=== PATIENT | male | born 1960 | race Caucasian/White ===

== ENCOUNTER 2018-04-05 07:30 | Inpatient (IN) ==
[2018-03-31 17:36] LABS: Appearance,Urine CLEAR; Bacteria,Urine 0 /hpf (0); Bilirubin,Urine NEG (NEG); Color,Urine YELLOW; Glucose,Urine (UA) NEGATIVE (NEG); Leukocyte Esterase,Urine NEG /uL (NEG); Mucus,Urine MANY /hpf (0); Protein,Urine NEG (NEG); Specific Gravity,Urine 1.036 (1.000-1.035); Urine Blood 0.03 mg/dL (<0.03); Urine RBC 0 /hpf (0-1); Urine Squamous Epithelial Cell 0 /hpf (0-4); Urine WBC < 1 /hpf (0-4); Urobilinogen,Urine NEG (NEG)
[2018-03-31 18:30] LABS: Basophils # (Auto) 0 K/mcL (0.0-0.3); Eosinophils # (Auto) 0.3 K/mcL (0.0-0.7); Eosinophils % (Auto) 5.1 % (0.0-7.0); Granulocytes % (Auto) 55.3 % (38.0-78.0); Lymphocytes # (Auto) 1.4 K/mcL (1.5-4.8); Lymphocytes % (Auto) 28.2 % (15.5-49.0); Monocytes # (Auto) 0.5 K/mcL (0.1-0.9); Monocytes % (Auto) 10.4 % (1.0-12.0); Platelet Count 181 K/mcL (140-440); RBC 4.79 M/mcL (4.50-5.90); Red Cell Distribution Width 14.1 % (11.5-14.5)
[2018-03-31 19:01] LABS: Blood Urea Nitrogen 21 mg/dl (6-20)
[~2018-04-05 07:30] MED LIST: ACETAMINOPHEN 500 MG TABLET PO SCH; CELECOXIB 200 MG CAPSULE PO SCH; PREGABALIN 75 MG CAPSULE PO SCH; ceFAZolin 1 GM VIAL IV SCH; oxyCODONE 10 MG TAB.ER.12H PO SCH
[2018-04-05] MEDS ORDERED: GENTAMICIN SULFATE 800 MG/20 ML VIAL IR ONE (11:54)
[2018-04-05] MEDS ORDERED: GLYCOPYRROLATE 0.2 MG/ML VIAL IV ONE (12:40)
[2018-04-05] MEDS ORDERED: ONDANSETRON 4 MG/2 ML VIAL IV ONE (12:40)
[2018-04-05] MEDS ORDERED: PROPOFOL 200 MG/20 ML VIAL IV ONE (12:40)
[2018-04-05] MEDS ORDERED: KETAMINE 100 MG/ML ML IV ONE (12:40)
[2018-04-05] MEDS ORDERED: PHENYLEPHRINE 10 MG/ML VIAL IV ONE (12:40)
[2018-04-05] MEDS ORDERED: TRANEXAMIC ACID 1,000 MG/10 ML VIAL IV ONE ×2 (12:40→14:21)
[2018-04-05] MEDS ORDERED: ePHEDrine 50 MG/ML AMPUL IV ONE (12:40)
[2018-04-05] MEDS ORDERED: MIDAZOLAM 2 MG/2 ML VIAL IV ONE (12:40)
[2018-04-05] MEDS ORDERED: LIDOCAINE HCL/PF 100 MG/5 ML SYRINGE IV ONE (12:40)
[2018-04-05] MEDS ORDERED: IPRATROPIUM/ALBUTEROL 3 ML AMPUL.NEB NEB PRN (14:17)
[2018-04-05] MEDS ORDERED: METHOCARBAMOL 1,000 MG/10 ML VIAL IV PRN (14:17)
[2018-04-05] MEDS ORDERED: fentaNYL 100 MCG/2 ML VIAL IV PRN (14:17)
[2018-04-05] MEDS ORDERED: MEPERIDINE 25 MG/ML SYRINGE IV PRN (14:17)
[2018-04-05] MEDS ORDERED: ONDANSETRON 4 MG/2 ML VIAL IV PRN ×2 (14:17→14:21)
[2018-04-05] MEDS ORDERED: ACETAMINOPHEN 325 MG TABLET PO PRN (14:21)
[2018-04-05] MEDS ORDERED: HYDROmorphone 2 MG/ML VIAL IV PRN (14:21)
[2018-04-05] MEDS ORDERED: BISACODYL 10 MG SUPP.RECT PR PRN (14:21)
[2018-04-05] MEDS ORDERED: MAGNESIUM HYDROXIDE 30 ML ORAL.SUSP PO PRN (14:21)
[2018-04-05] MEDS ORDERED: BENZOCAINE/MENTHOL 1 LOZENGE PO PRN (14:21)
[2018-04-05] MEDS ORDERED: TEMAZEPAM 15 MG CAPSULE PO PRN (14:21)
[2018-04-05] MEDS ORDERED: KETOROLAC 15 MG/ML VIAL IV PRN (14:21)
[2018-04-05] MEDS ORDERED: FLEETS ADULT ENEMA PR PRN (14:21)
[2018-04-05] MEDS ORDERED: POLYETHYLENE GLYCOL 3350 17 GM PACKET PO PRN (14:21)
--- NOTE | 2018-04-05 14:21 | Brief Operative Note ---
Date of procedure: 04/05/18 Pre-op diagnosis: left hip djd Post-op diagnosis: same Procedure: left yanna cementless Grafts/Implants: Yes Anesthesia: GETA Surgeon: Lorenzo Oneil Lease Out Man: Miller Mays Estimated blood loss (cc): 100 Specimens Removed/Pathology: none sent Condition: stable Disposition: PACU
[2018-04-05] MEDS ORDERED: LACTATED RINGERS 1,000 ML IV SCH (14:30)
--- NOTE | 2018-04-05 15:16 | Operative Note ---
DATE OF OPERATION: 04/05/2018 PREOPERATIVE DIAGNOSIS: Left hip degenerative arthritis, severe. POSTOPERATIVE DIAGNOSIS: Left hip degenerative arthritis, severe. PROCEDURE: Left total hip arthroplasty. SURGEON: Lorenzo Oneil M.D. FURNITURE REFINISHER: Miller Mays PA-C. ANESTHESIA: General LMA anesthesia by Clovis Leigh M.D. ESTIMATED BLOOD LOSS: About 100 mL. IMPLANTS: Size 6 cementless stem from [employer] with a 36 mm ceramic head with a 56 acetabular cup with a hooded liner. COMPLICATIONS: None. DESCRIPTION OF PROCEDURE: The patient was brought to the operating room and put to sleep with general LMA anesthesia. Once asleep, the patient had the left hip sterilely prepped and draped in the usual sterile fashion and turned into a right lateral position with a [place] positioner. Time out was performed confirming the operative site by initials, consent form, and x-rays. Once done, we then placed I[place]an over the skin and made a superior approach to the hip. Retractors were placed, and we released the capsule and dislocated the hip. We made our neck cut at 30 mm below the center of hip rotation as it was very deformed and made it somewhat difficult. Once done, we then irrigated thoroughly and subluxed the hip anteriorly. We reamed up to the size 56 and implanted a 56 cup with two screws measuring 30 mm and 35 mm with excellent purchase. A hooded liner was placed for a 36 mm ceramic head. Once this was done, we then prepared the femur. This was broached up to the size of 4. X-ray was taken showing this to be too small, and the leg was slightly longer than the opposite leg. We countersunk the stem another 5 mm, went up to the size of 6, and this seemed to give excellent fixation and stability of the hip. Excellent range of motion. I was unable to dislocate. Very symmetric. We had lengthened the leg slightly longer than the opposite side that had severe arthritis as well. Once done, we then implanted the final implants with a 36 mm ceramic head, neutral neck length with a 6 stem. We then repaired the gluteus prerna with a #1 Stratafix and closed the skin with #1 Stratafix and adhesive closure. Sterile bandage applied. JAGUAR:[email or web address] Job ID: [id number] Doc ID: [id number] Lorenzo Oneil MD
--- NOTE | 2018-04-05 15:26 | XRay Report ---
CLINICAL INFORMATION: Left hip replacement TECHNIQUE: AP pelvis. Lateral left hip COMPARISON: Preoperative evaluation dated 02/20/2018 FINDINGS: Status post left total hip arthroplasty. Alignment is anatomic. There is degenerative joint disease in the right hip. No acute abnormality IMPRESSION: Status post left total hip arthroplasty Interpreted and Authenticated by: Kem Parker 04/05/18
[2018-04-05] MEDS: 0.45 % SODIUM CHLORIDE 1,000 ML IV SCH (15:47)
[2018-04-05] MEDS: HYDROcodone/APAP 10/325MG TABLET PO PRN ×2 (18:17→19:54)
[2018-04-05] MEDS: DOCUSATE SODIUM 100 MG CAPSULE PO SCH (19:54)
[2018-04-05] MEDS: ASPIRIN 325 MG ENTERIC COATED TABLET PO SCH (19:54)
[2018-04-05] MEDS: 0.9 % SODIUM CHLORIDE 10 ML SYRINGE IV SCH (20:17)
[2018-04-05] MEDS ORDERED: SENNOSIDES 1 TABLET PO SCH (21:00)
[2018-04-06] MEDS ORDERED: ceFAZolin 1 GM VIAL ONE (00:09)
[2018-04-06] MEDS: ceFAZolin 1 GM VIAL IV SCH ×2 (00:14→08:45)
[2018-04-06] MEDS: 0.45 % SODIUM CHLORIDE 1,000 ML IV SCH (00:17)
[2018-04-06] MEDS: 0.9 % SODIUM CHLORIDE 10 ML SYRINGE IV SCH (05:14)
[2018-04-06] MEDS: HYDROcodone/APAP 10/325MG TABLET PO PRN ×3 (05:16→13:33)
[2018-04-06] MEDS ORDERED: 0.9 % SODIUM CHLORIDE 9 ML, KETOROLAC 30 MG, ROPIVACAINE HCL/PF 49.5 ML, EPINEPHrine 0.... IJ SCH (07:00)
--- NOTE | 2018-04-06 07:56 | Orthopedic Progress Note ---
Subjective Patient information: Note initiated : 04/06/18 at 7:56 am Service Date, if different from initiated Date: [] Patient: Oren Anderson Jr 58 y/o M admitted on 04/05/18 for Left Total Hip Arthroplasty. Chief Complaint: [Pt is stable this morning on post operative day 1 without any significant concerns or complaints. Patients vital signs have remained stable. Patients dressing is dry and is grossly intact from a neurovascular and motor standpoint. Patients 10 point ROS is otherwise negative. ] Objective Vital signs: Vital Signs Temp Pulse Resp BP Pulse Ox 04/06/18 04:00 90 04/06/18 03:00 98.9 F 98 H 20 152/74 90 04/06/18 02:00 91 04/05/18 23:53 91 04/05/18 23:32 98.6 F 90 22 160/81 91 04/05/18 21:26 94 04/05/18 19:32 98 F 89 18 151/83 94 04/05/18 19:19 92 H 159/81 92 04/05/18 18:20 98 04/05/18 15:20 97.2 F 61 12 141/78 98 04/05/18 15:05 55 L 15 108/82 100 04/05/18 14:50 96.5 F L 59 L 13 118/72 100 04/05/18 14:45 96.5 F L 62 15 95/50 100 04/05/18 14:42 67 14 102/52 100 04/05/18 14:37 96.5 F L 67 14 126/44 96 04/05/18 09:46 97.5 F 66 18 170/100 94 Intake and Output 04/05/18 04/06/18 04/06/18 21:59 05:59 13:59 Intake Total 2440 800 Output Total 800 Balance 2440 0 Intake: Oral 240 800 IV - Manual Only 2200 Output: Void Amount 800 Other: Percent of Meal Consumed 100% Feeding Ability Assist with Tray Set Up Weight 278 lb Intake & Output: Intake & Output 04/05/18 04/06/18 04/06/18 21:59 05:59 13:59 Intake Total 2440 800 Output Total 800 Balance 2440 0 Weight 278 lb Intake: Oral 240 800 IV - Manual Only 2200 Output: Void Amount 800 Other: Percent of Meal Consumed 100% Feeding Ability Assist with Tray Set Up Incision: Yes healing Incision clean and dry: Yes Dressing: Yes clean Weight bearing status: full Neurological exam IM: Yes motor sensory intact, Yes neurovascular intact Extremities exam IM: Yes normal inspection, Yes Foot pink and warm, Yes neurovascular intact - Labs CBC & BMP: 04/06/18 05:00 03/31/18 14:18 Labs: Orthopedic Labs 03/31/18 14:18 PT 12.3 INR 0.9 APTT 25 04/06/18 03/31/18 05:00 14:18 Hgb 13.5 Hct 35.8 L 42.2 Assessment and Plan (1) Hx of total hip arthroplasty The patient has been educated regarding dressing care, Physical Therapy recommendations, home exercises, restrictions, and follow up appointments. The patient has had all necessary DME prescribed. The patient has remained relatively stable during their hospital course. Leave Dermabond patch intact until followup Status: Acute
--- NOTE | 2018-04-06 07:59 | Discharge Summary ---
Ortho Discharge - [facility] - Patient Instructions Diet: Regular Diet Activity: activity as tolerated, weight bearing as tolerated Total Hip Protocol: Follow activity instructions as provided by Physical Therapy. Dressing Care: May shower in 2 days - Problem Maintenance (1) Hx of total hip arthroplasty Status: Acute - Follow Up Plan Follow Up Appointments: Miller Mays PA-C [Physician Environmental Compliance Officer] - 04/20/18 10:40 am Disposition: Home, Self-Care Prognosis: Good Rehab Potential: Good I certify that the patient requires SNF services: No Overall status at discharge: patient is progressing back to baseline - Orders For Discharge Prescriptions: Aspirin [Ecotrin] 325 mg PO BID #60 tab.ec Docusate Sodium [Colace] 100 mg PO BID #60 capsule HYDROcodone/APAP 10/325MG [[place] 10-325Mg] 1 - 3 tab PO Q4HP PRN #75 tab PRN Reason: Pain Level 3-6
[2018-04-06] MEDS: DOCUSATE SODIUM 100 MG CAPSULE PO SCH (08:44)
[2018-04-06] MEDS: ASPIRIN 325 MG ENTERIC COATED TABLET PO SCH (08:45)
[2018-04-06] MEDS ORDERED: VITAMIN D3 1,000 UNIT TABLET PO SCH (09:00)
[2018-04-06] MEDS ORDERED: MAGNESIUM OXIDE 400 MG TABLET PO SCH (09:00)
[2018-04-06] MEDS ORDERED: CALCIUM (OYSTER SHELL) 500 MG TABLET PO SCH (09:00)
== END 2018-04-06 14:00 | disposition home or self-care (01) | DRG 470 ==
LOC: MEDSUR 09:26
PROVIDERS: ADMIT Orthopaedic Surgery; ATTEND Orthopaedic Surgery